=== PATIENT | male | born 1960 | race Hispanic/Latino ===

== ENCOUNTER 2019-06-02 11:00 | Inpatient (IN) | payer OTHER ==
[2019-06-04 13:13] VITALS: BMI 26.6
[2019-06-11] MEDS ORDERED: Sodium Chloride 0.9% 100 ML ONE (06:06)
[2019-06-11] MEDS ORDERED: Tranexamic Acid 1,000 MG/10 ML VIAL ONE (06:06)
[2019-06-11] MEDS ORDERED: Midazolam HCl 2 mg/2 ml Vial ONE (06:40)
[2019-06-11] MEDS ORDERED: Fentanyl 100 MCG/2 ML VIAL ONE ×4 (06:40→10:26)
[2019-06-11] MEDS ORDERED: HYDROcodone/Acetaminophen 10/325 mg Tablet PO PRN ×4 (07:05→07:43)
[2019-06-11] MEDS ORDERED: Acetaminophen 325 MG TAB PO PRN ×2 (07:05→07:46)
[2019-06-11] MEDS ORDERED: Fentanyl 100 MCG/2 ML VIAL SLOW IVP PRN ×3 (07:05→07:45)
[2019-06-11] MEDS ORDERED: Ondansetron PF 4 MG/2 ML Vial IVP PRN ×3 (07:05→12:35)
[2019-06-11] MEDS ORDERED: diphenhydrAMINE 25 MG CAP PO PRN ×2 (07:05→12:35)
[2019-06-11] MEDS ORDERED: Promethazine HCl 25 MG/ML VIAL IM PRN ×4 (07:05→12:35)
[2019-06-11] MEDS ORDERED: Zolpidem Tartrate 5 MG TAB PO PRN ×3 (07:05→12:35)
[2019-06-11] MEDS ORDERED: traMADol HCl 50 MG TAB PO PRN ×2 (07:43)
[2019-06-11] MEDS ORDERED: Ropivacaine HCl/PF 250 ML in Premix Bag 1 BAG NERVE BLCK SCH (07:43)
[2019-06-11] MEDS ORDERED: Ondansetron HCl/PF 4 MG/2 ML Vial IVP PRN (10:07)
[2019-06-11] MEDS ORDERED: Promethazine HCl 25 MG/ML VIAL SLOW IVP PRN (10:07)
[2019-06-11] MEDS ORDERED: Lidocaine 1% (PF) 30 ML VIAL ONE (10:12)
[2019-06-11] MEDS ORDERED: Meperidine HCl/PF 25 MG/ML VIAL ONE ×3 (10:13→11:00)
--- NOTE | 2019-06-11 10:43 | RAD ---
XR Knee Lt 2 View HISTORY: Total knee Arthroplasty, postop FINDINGS: No fracture or dislocation is identified. There are recent postoperative changes of total knee arthro plasty in good position and alignment. Soft tissue air is present.
[2019-06-11] MEDS ORDERED: Ketorolac Tromethamine 30 MG/ML VIAL IVP SCH (12:00)
[2019-06-11] MEDS: Losartan 25 MG TAB PO SCH (12:03)
[2019-06-11] MEDS: Aspirin 81 mg Enteric Coated Tablet PO SCH ×2 (12:03→20:08)
[2019-06-11] MEDS ORDERED: Naloxone HCl 0.4 mg/ml Vial IV PRN ×2 (12:35→19:24)
[2019-06-11] MEDS ORDERED: diphenhydrAMINE 50 MG/ML VIAL IVP PRN (12:35)
[2019-06-11] MEDS ORDERED: diphenhydrAMINE 50 MG/ML VIAL IM PRN (12:35)
[2019-06-11] MEDS ORDERED: fentaNYL Citrate/PF 2,000 MCG in Sodium Chloride 0.9% 60 ML IV PRN (12:35)
[2019-06-11] MEDS: Sodium Chloride 0.9% 1,000 ML IV SCH ×2 (12:43→15:48)
[2019-06-11] MEDS ORDERED: Communication Order-Pharmacy FS SCH (12:45)
[2019-06-11] MEDS ORDERED: hydrALAZINE 20 MG/ML VIAL SLOW IVP PRN (12:52)
--- NOTE | 2019-06-11 13:24 | CON ---
DATE OF CONSULTATION: 06/11/2019 PRIMARY CARE PROVIDER: Sergio Jonas MD CHIEF COMPLAINT: Management of medical comorbidities. HISTORY OF PRESENT ILLNESS: Mr. Dail is a pleasant 58-year-old gentleman, who was seen at [facility] on 06/11/2019. He had revision surgery of his left knee earlier today. Hospitalist Service has been consulted for management of medical comorbidities. He reports pain at the left knee. He denies any chest pain, shortness of breath, fevers, or chills. He denies any nausea or vomiting. He denies any abdominal pain. REVIEW OF SYSTEMS: All systems were reviewed and found to be negative except for the pertinent positives mentioned above. PAST MEDICAL HISTORY: 1. Hypertension. 2. Dyslipidemia. SURGICAL HISTORY: 1. Left knee repair x2. 2. Intracranial aneurysm repair. FAMILY HISTORY: No family history of coronary artery disease. SOCIAL HISTORY: The patient smokes 4-5 cigarettes a day. He reports alcohol use over the weekends. ALLERGIES: ASPIRIN AND CODEINE. CURRENT MEDICATIONS: 1. Ibuprofen p.r.n. 2. Atorvastatin 10 mg at bedtime. 3. Gabapentin 300 mg at bedtime. 4. Hiram p.r.n. 5. Losartan 50 mg daily. 6. Protonix 40 mg as needed. PHYSICAL EXAMINATION: GENERAL: On examination, Mr. Dial is awake and alert, not in acute distress. VITAL SIGNS: Blood pressure is 139/82, pulse 88, respiratory rate 18, and oxygen saturation 99% on room air. He is afebrile. EYES: No scleral icterus, no conjunctival pallor. ENT: Moist mucosal membranes. No oropharyngeal erythema or exudates. NECK: Supple, nontender, trachea is midline. RESPIRATORY: Accessory muscles of breathing are not active. Chest wall movements are symmetric bilaterally. Lungs are clear to auscultation without wheeze, rhonchi, or crepitations. CARDIOVASCULAR: S1 and S2 are heard, regular. Peripheral pulses palpable. ABDOMEN: Soft, nontender, bowel sounds heard. NEUROLOGIC: Cranial nerves 2 through 12 are intact. MUSCULOSKELETAL: Status post left knee surgery. SKIN: No rashes. LYMPHATIC: No cervical lymphadenopathy. PSYCHIATRIC: Normal mood, normal affect, the patient is oriented to person, place, and time. LABORATORY DATA: Mr. Dial's labs and investigations were reviewed. On 06/04, he had normal white count, normal hemoglobin, normal platelet count, INR 1.0, elevated creatinine of 1.53, otherwise unremarkable comprehensive metabolic profile. His creatinine was 0.86 on 10/30/2017. Urinalysis was negative for nitrite and leukocyte esterase. ASSESSMENT AND PLAN: Mr. Dial is a pleasant 58-year-old gentleman, who was seen at [facility] on 06/11/2019. His problem list includes: 1. Acute kidney injury: Mr. Dial had elevated creatinine of 1.53 on 06/04/2019. This is above his baseline. He is currently receiving intravenous hydration. I will recheck his creatinine in the morning. 2. Hypertension: Resume home medications, monitor vital signs and titrate antihypertensives as needed. The patient was not on a beta-usha prior to surgery, we will not start him on one. The patient will also be started on p.r.n. IV hydralazine for blood pressure spikes. 3. Dyslipidemia: Continue Lipitor. 4. Tobacco abuse: The patient was counseled regarding tobacco cessation. He does not want to start nicotine replacement therapy. Many thanks for allowing me to participate in your patient's care. Please feel free to contact me with any questions or concerns. LEVEL OF RISK: Low. LEVEL OF COMPLEXITY: Low. Job ID: [id number]
[2019-06-11] MEDS: CEFAZOLIN 2 GM in Premix Bag 1 BAG IVPB SCH ×2 (13:32→21:36)
[2019-06-11] MEDS ORDERED: FLU VACC QS2019-20(6MOS UP)/PF 60 MCG/0.5 ML SYRINGE IM ONE (13:45)
[2019-06-11] MEDS ORDERED: Ropivacaine 0.5% HCl/PF (150 MG/30 ML VIAL) ONE (14:06)
[2019-06-11] MEDS ORDERED: PROPOFOL 200 MG/20 ML VIAL ONE (14:06)
[2019-06-11] MEDS ORDERED: Ropivacaine 0.2% HCl/PF (40 MG/20 ML VIAL) ONE (14:06)
[2019-06-11] MEDS ORDERED: Lidocaine 1% PF 5 ML VIAL ONE (14:06)
[2019-06-11] MEDS ORDERED: Ondansetron PF 4 MG/2 ML Vial ONE (14:06)
--- NOTE | 2019-06-11 15:12 | OP ---
DATE OF PROCEDURE: 06/11/2019 PREOPERATIVE DIAGNOSIS: Failed left total knee arthroplasty. POSTOPERATIVE DIAGNOSIS: Failed left total knee arthroplasty. PROCEDURE PERFORMED: Revision of left total knee arthroplasty. MODEL ARTISTS': Ricky Thorpe PA-C ANESTHESIA: General via LMA augmented with indwelling adductor canal block and a single-shot sciatic block. COMPONENTS USED: [employer] Triathlon size 5 total stabilized cemented femoral component with two distal 10-mm augmentations and a 17 mm x 100 mm fluted stem, 19 mm polyethylene fixed bearing total stabilized insert and a Triathlon size 4 cemented total stabilized universal baseplate with a 15 x 50 mm stem. TOURNIQUET TIME: 106 minutes. INPUT: 1 L of crystalloid. OUTPUT: Not measured. No Millard placed. ESTIMATED BLOOD LOSS: Less than 100. FINDINGS: Normal serous synovial fluid, good cement mantle, but with mid flexion instability noted on clinical examination. No aseptic loosening was identified and patella was well fixed as well. The patient's primary problem was mid-flexion instability. DRAINS: None. SPECIMENS: None. COMPLICATIONS: None. COUNTS: Correct. INDICATIONS FOR SURGERY: Rolan is a 58-year-old male, who has had his primary knee replacement done approximately 5 years ago. He has always had discomfort and pain in the knee with stepping and walking. Radiographs have been serially obtained, which demonstrated no changes and he has never had evidence of any infection. Clinical complaints still centered around discomfort with standing and walking. Clinical examination was consistent with mid-flexion instability and therefore, the patient elected to proceed with revision arthroplasty for definitive treatment of this problem. PROCEDURE IN DETAIL: After informed consent was obtained in the preoperative holding area, the patient was taken to the operative suite. General anesthesia was induced and he received preoperative antibiotics. The patient was then positioned appropriately on the operating table. Well-padded tourniquet was placed over the left proximal thigh. Prior to inflation, a time-out was called. All members of surgical team agreed upon site, surgeon, and patient. The tourniquet was then raised where it stayed at 300 mmHg for the remainder of the case. Once this was accomplished, an incision was made directly over the patient's old incision. Subcutaneous layer was sharply dissected. Bleeding was controlled with electrocautery. A median parapatellar arthrotomy was then performed sharply. Medial sleeve was developed and a full subtotal synovectomy was performed and then medial and lateral gutters were reestablished with rongeur and Bovie electrocautery. The knee was placed in the high flexion and the reciprocating saw was then used to recreate the anterior flange and remove the cement mantle. This was accomplished on the anterior flange, anterior chamfer, and around the lugs. Series of osteotomes were then used to loosen the mantle and the femoral component was then loosened. Osteotomes were then used to remove the polyethylene fixed bearing insert and the femoral component then was fully removed. We had enough bone stalk for revision. Attention was then turned to tibial explantation, which was accomplished with a series of the reciprocating saw and osteotomes. The knee was placed in the high flexion and the tibial implant was then removed. Patella was identified. Synovectomy was carried out. It was found to be stable, therefore we did not revise it. Tibial preparation was then carried out. We established a new baseplate. The trial was malleted into place and pinned. We then chose a 16-mm trial, placed the femoral cutting block, established varus and valgus in rotation. This was pinned into place into full extension with no play in the collaterals. We then used oscillating saw to make distal resection. Happy with our flexion and extension gap, the cutting block was then removed. The intercondylar notch was cut and we placed the trial implants into place with appropriate 10 mm augments, both medial and lateral. Flexion and extension were good. Stable varus and valgus. We chose a 19-mm trial and we were happy with extension and flexion. No spit on flexion and good stable varus and valgus stressing. The trials were removed. Copious irrigation was carried out. All excess old cement was removed with curettage and the entire joint capsule, both internally and externally was cleaned out. We used 2 L of saline lavage. The implants were then prepared on the back table and cemented into place and the polyethylene fixed bearing insert was then malleted squarely into place and the retaining pin was also placed. Again, the knee was taken through full range of motion examination. Happy with the cement placement, the joint was copiously irrigated with normal saline pulsatile lavage. Primary closure was accomplished with interrupted #2 Vicryl. This was oversewn with a running #2 Quill stitch for the capsule. The subcutaneous layer was closed with a running Quill 0 PDS stitch and the subcuticular layer was closed with Monocryl running Quill stitch and skin was reapproximated with cement . Sterile dressing was applied. The tourniquet was dropped. The procedure was terminated without any complication and the LMA was removed. The patient was taken to recovery room in stable condition. Job ID: [id number]
[2019-06-11] MEDS: Acetaminophen 500 MG TAB PO SCH ×2 (16:50→21:35)
[2019-06-11] MEDS: HYDROmorphone 10 mg/100 ml CADD IV PRN (19:58)
[2019-06-11] MEDS: Atorvastatin Calcium 10 MG TAB PO SCH (20:08)
[2019-06-11] MEDS: Gabapentin 300 MG CAP PO SCH (20:08)
[2019-06-12] MEDS: Acetaminophen 500 MG TAB PO SCH ×4 (04:05→20:59)
[2019-06-12] MEDS: Sodium Chloride 0.9% 1,000 ML IV SCH ×2 (04:06→14:07)
[2019-06-12 05:22] LABS: Hemoglobin 12.4 g/dL (14.0-18.0); Mean Corpuscular Volume 88.5 fL (78.0-98.0); Mean Platelet Volume 7.5 fL (7.4-10.4); Platelet Count 215 thou/uL (130-400); RBC Distribution Width 11.2 % (11.5-14.5); Red Blood Cell (RBC) Count 4.01 mill/uL (4.70-6.10); White Blood Cell (WBC) Count 11.6 thou/uL (4.8-10.8)
[2019-06-12 05:43] LABS: Anion Gap 10 mmol/L (10-20); BUN (Urea Nitrogen) 9 mg/dL (8.4-25.7); Calc. Creatinine Clearance 102 mL/min (70-130); Calcium 8.5 mg/dL (7.8-10.44); Carbon Dioxide 25 mmol/L (22-29); Chloride 102 mmol/L (98-107); Estimated GFR-MDRD Greater than 90; Glucose 118 mg/dL (70-105); Potassium 4.2 mmol/L (3.5-5.1); Sodium 133 mmol/L (136-145)
[2019-06-12] MEDS: Losartan 25 MG TAB PO SCH (07:55)
[2019-06-12] MEDS: Senokot S 8.6-50 MG TAB PO SCH ×2 (07:55→20:59)
[2019-06-12] MEDS: Ferrous Gluconate 324 MG TAB PO SCH ×2 (07:55→17:13)
[2019-06-12] MEDS: Multivitamin W/ Minerals 1 TAB PO SCH (07:55)
[2019-06-12] MEDS: Aspirin 81 mg Enteric Coated Tablet PO SCH (07:56)
--- NOTE | 2019-06-12 08:46 | PRG ---
DATE OF SERVICE: 06/12/2019 SUBJECTIVE: Rolan is a 58-year-old male, who is postoperative day 1 from a left total knee arthroplasty revision. He complains of pain, but he did stand yesterday evening after surgery and walked to the door. He is currently using a CPO. OBJECTIVE: VITAL SIGNS: Temperature 98, pulse 85, respiratory rate 16 and unlabored, O2 saturation 92% on room air, and blood pressure 137/82. GENERAL: He is alert and oriented to person, place, time, and situation. Responsive, appropriate with examiner, grossly nonfocal. EXTREMITIES: His knee has no strike through. Dressing is intact. He is neurovascularly intact in the left lower extremity. LABORATORY DATA: Hemoglobin and hematocrit 12.4 and 35.5. IMPRESSION: A 58-year-old male, postoperative day 1 of revision left total knee arthroplasty. PLAN: Continue current care. Continue physical therapy. Probable discharge Saturday. Otherwise, he may go home over the weekend. Job ID: [id number]
[2019-06-12] MEDS: Enoxaparin Sodium 40 MG/0.4 ML SYRINGE SC SCH (09:09)
[2019-06-12] MEDS ORDERED: Fentanyl 100 MCG/2 ML VIAL SLOW IVP SCH (10:30)
[2019-06-12] MEDS: Ketorolac Tromethamine 30 MG/ML VIAL IVP SCH ×3 (10:48→20:59)
[2019-06-12] MEDS: HYDROmorphone 10 mg/100 ml CADD IV PRN (10:57)
[2019-06-12] MEDS: Gabapentin 300 MG CAP PO SCH (20:59)
[2019-06-12] MEDS: Atorvastatin Calcium 10 MG TAB PO SCH (20:59)
[2019-06-13 03:52] VITALS: BP 125/79; TEMP 98.3
[2019-06-13] MEDS: Ketorolac Tromethamine 30 MG/ML VIAL IVP SCH (04:02)
[2019-06-13] MEDS: Acetaminophen 500 MG TAB PO SCH (04:02)
[2019-06-13] MEDS: Sodium Chloride 0.9% 1,000 ML IV SCH (04:18)
[2019-06-13 05:37] LABS: Hemoglobin 11.1 g/dL (14.0-18.0); Mean Corpuscular HGB CONC 35.3 g/dL (32.0-36.0); Mean Corpuscular Hemoglobin 31.3 pg (27.0-31.0); Mean Corpuscular Volume 88.8 fL (78.0-98.0); Mean Platelet Volume 7.7 fL (7.4-10.4); Platelet Count 188 thou/uL (130-400); RBC Distribution Width 11.1 % (11.5-14.5); Red Blood Cell (RBC) Count 3.55 mill/uL (4.70-6.10); White Blood Cell (WBC) Count 11.5 thou/uL (4.8-10.8)
[2019-06-13] MEDS: Losartan 25 MG TAB PO SCH (08:17)
[2019-06-13] MEDS: Ferrous Gluconate 324 MG TAB PO SCH (08:17)
[2019-06-13] MEDS: Multivitamin W/ Minerals 1 TAB PO SCH (08:17)
[2019-06-13] MEDS: Senokot S 8.6-50 MG TAB PO SCH (08:17)
[2019-06-13] MEDS: Enoxaparin Sodium 40 MG/0.4 ML SYRINGE SC SCH (08:18)
== END 2019-06-13 10:04 | disposition home or self-care (01) | DRG 467 ==
LOC: SURG A 06-11 05:56 → SURG B 06-11 12:05
PROVIDERS: ADMIT Orthopaedic Surgery; ATTEND Orthopaedic Surgery
PROC: 0SPD0JZ Removal of Synthetic Substitute from Left Knee Joint, Open Approach (ICD-10-PCS; principal; 2019-06-11)
PROC: 0SRD0J9 Replacement of Left Knee Joint with Synthetic Substitute, Cemented, Open Approach (ICD-10-PCS; 2019-06-11)
DX: T84.013A Broken internal left knee prosthesis, initial encounter (principal); N17.9 Acute kidney failure, unspecified; I10 Essential (primary) hypertension; E78.5 Hyperlipidemia, unspecified; K21.9 Gastro-esophageal reflux disease without esophagitis; F41.9 Anxiety disorder, unspecified; F17.210 Nicotine dependence, cigarettes, uncomplicated; Y83.8 Other surgical procedures as the cause of abnormal reaction of the patient, or of later complication, without mention of misadventure at the time of the procedure
CPT/HCPCS: 36415; 80048; 85027; 88305; 88331; C1713; C1776; C1781; J0690; J1650; J1885; J2001; J2175; J2250; J2405; J2704; J2795; J3010; J3370; J3490

== ENCOUNTER 2019-06-04 07:21 | Outpatient (CLI) | payer OTHER ==
[2019-06-04 14:25] LABS: #Eosinphils 0.1 thou/uL (0.0-0.7); #Lymphocytes 1.9 thou/uL (1.20-3.40); #Monocytes 0.6 thou/uL (0.11-0.59); #Neutrophils 6.8 thou/uL (1.40-6.50); %Basophils 0.5 % (0.0-1.0); %Eosinophils 0.9 % (0.0-10.0); %Monocytes 6.4 % (0.0-10.0); %Neutrophils 72.2 % (42.0-75.0); Hemoglobin 15.6 g/dL (14.0-18.0); Mean Corpuscular HGB CONC 34.1 g/dL (32.0-36.0); Mean Corpuscular Hemoglobin 30.1 pg (27.0-31.0); Mean Corpuscular Volume 88.1 fL (78.0-98.0); Mean Platelet Volume 7.6 fL (7.4-10.4); Platelet Count 319 thou/uL (130-400); RBC Distribution Width 11.3 % (11.5-14.5); Red Blood Cell (RBC) Count 5.18 mill/uL (4.70-6.10); White Blood Cell (WBC) Count 9.4 thou/uL (4.8-10.8)
[2019-06-04 14:32] LABS: Prothrombin Time 12.7 SEC (12.0-14.7)
[2019-06-04 14:34] LABS: Bacteria/HPF None Seen HPF (None Seen); Bilirubin Negative (Negative); Blood, Urine Negative (Negative); Clarity Clear (Clear); Glucose, Urine (Dipstick) Normal (Negative); Leukocyte Negative Leu/uL (Negative); Nitrite Negative (Negative); Protein, Urine (Dipstick) Negative (Neg-Trace); RBC/HPF 0-3 HPF (0-3); Squamous Epithelial None Seen HPF (0-3); Urobilinogen Normal mg/dL (Less than 2); WBC/HPF 0-3 HPF (0-3)
[2019-06-04 14:46] LABS: Anion Gap 14 mmol/L (10-20); BUN (Urea Nitrogen) 15 mg/dL (8.4-25.7); Calc. Creatinine Clearance 0 mL/min (70-130); Calcium 9.7 mg/dL (7.8-10.44); Carbon Dioxide 27 mmol/L (22-29); Chloride 104 mmol/L (98-107); Estimated GFR-MDRD 47; Glucose 93 mg/dL (70-105); Potassium 4.7 mmol/L (3.5-5.1); Sodium 140 mmol/L (136-145)
--- NOTE | 2019-06-04 17:37 | EKG ---
Test Reason : Blood Pressure : / mmHG Vent. Rate : 075 BPM Atrial Rate : 075 BPM P-R Int : 130 ms QRS Dur : 072 ms QT Int : 364 ms P-R-T Axes : 039 058 057 degrees QTc Int : 406 ms Normal sinus rhythm Normal ECG When compared with ECG of 03-JUL-2016 09:55, No significant change was found Confirmed by DR. Marsha ARAMBULA ([id number]) on 06/04/2019 5:36:45 PM Referred By: ANNA Confirmed By:DR. Marsha ARAMBULA
== END 2019-06-04 07:22 | disposition home or self-care (01) ==
LOC: LABBT 07:21
PROVIDERS: ATTEND Orthopaedic Surgery
DX: Z01.818 Encounter for other preprocedural examination (principal); T84.9XXA Unspecified complication of internal orthopedic prosthetic device, implant and graft, initial encounter
CPT/HCPCS: 80048; 81001; 85025; 85610; 87081; 93005; 93010

== ENCOUNTER 2020-07-11 06:53 | Outpatient (CLI) | payer OTHER ==
[2020-07-11 14:24] LABS: Bilirubin Neg (Negative); Blood, Urine Negative (Negative); Clarity Clear (Clear); Glucose, Urine (Dipstick) Normal (Negative); Ketone, Urine Negative (Negative); Leukocyte Negative (Negative); Nitrite Negative (Negative); Protein, Urine (Dipstick) Negative (Neg-Trace); Urobilinogen Normal mg/dL (Less than 2)
[2020-07-11 14:41] LABS: Anion Gap 14 mmol/L (10-20); BUN (Urea Nitrogen) 11 mg/dL (8.4-25.7); Calc. Creatinine Clearance 0 mL/min (70-130); Calcium 9.4 mg/dL (7.8-10.44); Carbon Dioxide 21 mmol/L (22-29); Chloride 105 mmol/L (98-107); Glucose 87 mg/dL (70-105); Potassium 4.1 mmol/L (3.5-5.1); Sodium 136 mmol/L (136-145)
[2020-07-11 15:07] LABS: Hemoglobin 14.7 g/dL (14.0-18.0); Mean Corpuscular HGB CONC 34.7 G/DL (32.0-36.0); Mean Corpuscular Volume 86.5 fl (80.0-100.0); Mean Platelet Volume 10.1 fl (7.4-10.4); Platelet Count 335 10x3/uL (130-400); RBC Distribution Width 12.1 % (11.5-14.5); White Blood Cell (WBC) Count 9.9 10x3/uL (4.5-11.0)
[2020-07-11 15:29] LABS: PTT 26.3 sec (22.0-33.0); Prothrombin Time 10.7 sec (9.5-12.1)
[2020-07-11 16:54] LABS: RBC/HPF 0-3 HPF (0-3); WBC/HPF None Seen HPF (0-3)
[2020-07-11 16:55] LABS: Bacteria/HPF None Seen HPF (None Seen); Squamous Epithelial 0-3 HPF (0-3)
[2020-07-12 06:31] LABS: SARS-CoV-2 MS2 Positive; SARS-CoV-2 N Gene Negative; SARS-CoV-2 S Gene Negative; SARS-CoV-2 by NAA Not Detected (NotDetected); SARS-CoV-2 orf1ab Negative
== END 2020-07-11 06:54 | disposition home or self-care (01) ==
LOC: LABBT 06:53
PROVIDERS: ATTEND Urology
DX: Z01.818 Encounter for other preprocedural examination (principal); Z20.828 Contact with and (suspected) exposure to other viral communicable diseases; N32.81 Overactive bladder; N48.6 Induration penis plastica; N40.1 Benign prostatic hyperplasia with lower urinary tract symptoms
CPT/HCPCS: 80048; 81001; 85027; 85610; 85730; 87086; 87635; 93005; 93010; U0003

== ENCOUNTER 2020-07-14 09:41 | Observation (INO) | payer OTHER ==
[2020-07-14] MEDS ORDERED: Levofloxacin 500 mg/D5W 100 ml Premix Bag ONE (10:17)
[2020-07-14] MEDS ORDERED: Lidocaine 1% PF 5 ML VIAL ONE (11:22)
[2020-07-14] MEDS ORDERED: Glycopyrrolate 0.2 MG/ML 5 ML SYRINGE ONE (11:22)
[2020-07-14] MEDS ORDERED: Rocuronium Bromide 10 MG/ML (10ML VIAL) ONE (11:22)
[2020-07-14] MEDS ORDERED: PROPOFOL 200 MG/20 ML VIAL ONE (11:22)
[2020-07-14] MEDS ORDERED: Succinylcholine 200 MG/10 ml SYRINGE FS ONE (11:22)
[2020-07-14] MEDS ORDERED: Ondansetron PF 4 MG/2 ML Vial ONE (11:22)
[2020-07-14] MEDS ORDERED: Fentanyl 100 MCG/2 ML VIAL ONE ×3 (13:56→16:34)
[2020-07-14] MEDS ORDERED: B & O ONE (14:17)
[2020-07-14] MEDS ORDERED: diphenhydrAMINE 25 MG CAP PO PRN (14:35)
[2020-07-14] MEDS ORDERED: Ondansetron PF 4 MG/2 ML Vial IVP PRN (14:35)
[2020-07-14] MEDS ORDERED: Bisacodyl 10 MG SUPP PR PRN (14:35)
[2020-07-14] MEDS ORDERED: hydrALAZINE 20 MG/ML VIAL SLOW IVP PRN (14:35)
[2020-07-14] MEDS ORDERED: Mag-Al 1200 mg/1200 mg/30 ML UDCUP PO PRN (14:35)
[2020-07-14] MEDS ORDERED: Oxybutynin 5 MG TAB PO PRN (14:35)
[2020-07-14] MEDS ORDERED: Gabapentin 300 MG CAP PO PRN (14:37)
[2020-07-14] MEDS ORDERED: Phenazopyridine HCl 100 MG TAB PO PRN (14:50)
--- NOTE | 2020-07-14 16:14 | OP ---
DATE OF PROCEDURE: 07/14/2020 SERVICES: Urology. PREOPERATIVE DIAGNOSIS: Benign prostatic hyperplasia with obstruction. POSTOPERATIVE DIAGNOSIS: Benign prostatic hyperplasia with obstruction. PROCEDURE PERFORMED: Transurethral vaporization of the prostate. BRIEF HISTORY: Mr. Dial is a 60-year-old male, who initially presented to me with BPH and urinary symptoms. After workup, he was only marginally improved on Flomax. He did have improvement with oxybutynin, but was still not symptomatically urinating very well. Workup demonstrated BPH with narrow bladder neck. He was a good candidate for UroLift, however, his insurance would not cover this. Therefore, we elected to proceed with transurethral vaporization of the prostate. Risks and benefits of the surgery were discussed and he has agreed to proceed forward. DESCRIPTION OF PROCEDURE: After identification of armband and verification of consent, the patient was brought back to the operating room, where he went underwent general anesthesia with an endotracheal intubation. He was then placed in dorsal lithotomy position and prepped and draped in usual sterile fashion. After appropriate time-out, a 26-Ugandan resectoscope sheath with visual obturator was passed through the urethra and through the prostate into the bladder. The visual obturator was switched out for the bipolar vaporization button. Both ureters were identified in orthotopic location. Vaporization was initially started on the lateral lobes and carried back to the level of the verumontanum. The posterior and anterior aspect of the prostate were then vaporized. The bladder neck was extremely high and narrow. Therefore, 5 o'clock and 7 o'clock relaxing incisions were made to completely open up the bladder neck, which resulted in a wide-open prostatic fossa. All intervening tissue was then vaporized and then smoothed out. The bladder was decompressed and then under partial filling the remaining lumps from the prostate were smoothed out and vaporized. Upon completion, the prostate was extremely wide open. The prostate vaporization was carried out close to but not at the prostatic capsule and care was taken not to go past the verumontanum. Both ureters were in the orthotopic location, unharmed at the end of the procedure. Meticulous hemostasis had been performed along the prostatic fossa until no bleeding could be visualized with a mostly decompressed bladder. The bladder was then filled and the resectoscope removed. A 22-Ugandan three-way Millard catheter was placed with ease into the patient's bladder and 30 mL of sterile water placed into the balloon. CBI was initiated. A B and O suppository placed in the rectum. The patient was taken out of positioning, awakened, taken to PACU for recovery in stable condition. COMPLICATIONS: None. ESTIMATED BLOOD LOSS: Minimal. RETAINED TUBES AND DRAINS: 22-Ugandan three-way Millard catheter on CBI. SPECIMENS: None. DISPOSITION: The patient will be observed in the hospital overnight. We will plan a voiding trial in the morning and then discharge home subsequently. Job ID: [id number]
[2020-07-14] MEDS ORDERED: Hyoscyamine Sulfate SL 0.125 mg Tablet ONE ×2 (16:58→17:10)
[2020-07-14] MEDS ORDERED: Oxybutynin 5 MG TAB ONE (16:59)
[2020-07-14] MEDS ORDERED: Morphine 4 MG/ML VIAL ONE (17:06)
[2020-07-14] MEDS ORDERED: Morphine 2 MG/ML VIAL ONE ×4 (17:28→20:12)
[2020-07-14] MEDS ORDERED: Atorvastatin Calcium 10 MG TAB PO SCH (21:00)
[2020-07-14] MEDS: Acetaminophen 500 MG TAB PO PRN (21:30)
[2020-07-14] MEDS: Ibuprofen 200 MG TAB PO PRN (21:30)
[2020-07-14] MEDS: traMADol HCl 50 MG TAB PO PRN (21:30)
[2020-07-14] MEDS: Docusate 100 MG CAP PO SCH (21:30)
[2020-07-14 21:51] VITALS: BMI 23.6
[2020-07-14] MEDS: Morphine 2 MG/ML VIAL SLOW IVP PRN (22:38)
[2020-07-14] MEDS: Hyoscyamine Sulfate SL 0.125 mg Tablet SL PRN (23:58)
[2020-07-15] MEDS: Morphine 2 MG/ML VIAL SLOW IVP PRN ×5 (00:35→10:17)
[2020-07-15] MEDS: Hyoscyamine Sulfate SL 0.125 mg Tablet SL PRN ×2 (06:36→14:08)
[2020-07-15] MEDS ORDERED: Trospium 20 MG TAB PO SCH (09:00)
[2020-07-15] MEDS ORDERED: Losartan 25 MG TAB PO SCH (09:00)
[2020-07-15 09:07] VITALS: BP 112/73
[2020-07-15] MEDS: Docusate 100 MG CAP PO SCH (09:09)
[2020-07-15] MEDS: traMADol HCl 50 MG TAB PO PRN (09:09)
[2020-07-15] MEDS: Acetaminophen 500 MG TAB PO PRN (10:16)
[2020-07-15] MEDS: Ibuprofen 200 MG TAB PO PRN (10:16)
[2020-07-15 12:21] VITALS: TEMP 97.3
[2020-07-15] MEDS ORDERED: HYDROcodone/Acetaminophen 5/325 mg Tablet PO SCH (14:45)
--- NOTE | 2020-07-15 18:04 | PRG ---
DATE OF SERVICE: 07/15/2020 SUBJECTIVE: The patient states he is having a lot of pelvic pain and bladder spasms, but otherwise has had a night without any other issues. He denies any nausea, vomiting, or chest pain. His catheter CBI was stopped this morning and subsequently had his catheter removed. The patient then was able to void twice with clearing translucent light pink urine. OBJECTIVE: VITAL SIGNS: Temperature 97.3, pulse 66, respirations 18, blood pressure 112/73, and saturation 93% on room air. GENERAL: No apparent distress, communicative and alert. CARDIOVASCULAR: Regular rate and rhythm. ABDOMEN: Soft, nontender, and nondistended. Positive bowel sounds. : Nonfocal. After catheter out, no significant bleeding. EXTREMITIES: No edema. LABORATORY EVALUATION: There are no new labs to review. ASSESSMENT AND PLAN: A 60-year-old male with benign prostatic hypertrophy and urinary obstruction status post transurethral vaporization of prostate with successful voiding trial today, postoperative day 1. The patient can be discharged home. He is complaining of a lot of dysuria and pelvic pain. He states the tramadol is working well. I will switch him to hydrocodone with Tylenol for pain control and I will start him on a Medrol Dosepak to reduce inflammation to avoid possible risk for urethral stricture disease and bladder neck contracture. We will continue to monitor his progress as an outpatient. I have gone over his discharge instructions with him and we will see him on an outpatient basis. Job ID: [id number]
--- NOTE | 2020-07-16 02:53 | DIS ---
DATE OF ADMISSION: 07/14/2020 DATE OF DISCHARGE: 07/15/2020 ADMITTING DIAGNOSIS: BPH with obstruction. DISCHARGE DIAGNOSIS: BPH with obstruction. PROCEDURE PERFORMED: While inpatient is transurethral vaporization of prostate. BRIEF HISTORY: Mr. Dial is a 60-year-old male with BPH and urinary obstructive symptoms. His insurance would not cover the urolith procedure which he wanted. Therefore, he has elected to go for vaporization of the prostate instead. Risks and benefits have been discussed and he agreed to proceed forward. The full H and P can be found in the scanned portion of the [employer] system. HOSPITAL COURSE: After surgery (please see operative note for details), the patient was kept in the hospital overnight on CBI. The CBI was discontinue in the morning. The patient was able to successfully void twice after this with extremely clear urine with only a little bit of blood. He did complain of a lot of pain and stated that tramadol was not working. He was given Hope instead, which worked better. I told him we would also give him a Medrol Dosepak to reduce inflammation and help avoid strictures or bladder neck contractures within the prostate. He felt better after this and was able to be discharged home without further event. DISPOSITION: DC to home. DISCHARGE CONDITION: Good. DISCHARGE MEDICATIONS: The patient may resume all of his home medications. In addition, he will be given a prescription for Hope 5/325 mg one tab p.o. q.6 hours p.r.n. pain, Colace 100 mg p.o. daily., Pyridium 200 mg p.o. t.i.d. p.r.n. dysuria, and Medrol Dosepak. The patient already has oxybutynin extended release at home and will continue this for his overactive bladder. I will plan to see him back in approximately 1 to 2 weeks for a postop check. Job ID: [id number]
== END 2020-07-15 14:55 | disposition home or self-care (01) ==
LOC: SDC 09:41 → SURG A 14:35
PROVIDERS: ADMIT Urology; ATTEND Urology
PROC: 0V507ZZ Destruction of Prostate, Via Natural or Artificial Opening (ICD-10-PCS; principal; 2020-07-14)
DX: N40.1 Benign prostatic hyperplasia with lower urinary tract symptoms (principal); N13.8 Other obstructive and reflux uropathy; N32.89 Other specified disorders of bladder; M19.90 Unspecified osteoarthritis, unspecified site; K21.9 Gastro-esophageal reflux disease without esophagitis; E78.5 Hyperlipidemia, unspecified; I10 Essential (primary) hypertension; Z86.73 Personal history of transient ischemic attack (TIA), and cerebral infarction without residual deficits; Z79.899 Other long term (current) drug therapy; Z88.5 Allergy status to narcotic agent; Z88.6 Allergy status to analgesic agent
CPT/HCPCS: 96365; 96375; 96376; G0378; J1956; J2270; J2405; J2704; J3010

== ENCOUNTER 2022-10-12 11:27 | Outpatient (CLI) | payer OTHER ==
[2022-10-12 12:29] LABS: Bilirubin Neg (Negative); Blood, Urine Negative (Negative); Clarity Clear (Clear); Glucose, Urine (Dipstick) Normal (Negative); Ketone, Urine Negative (Negative); Leukocyte Negative (Negative); Nitrite Negative (Negative); Protein, Urine (Dipstick) Negative (Neg-Trace); Urobilinogen Normal mg/dL (Less than 2); pH, Urine 6.5 (5.0-9.0)
[2022-10-12 12:46] LABS: Bacteria/HPF None Seen HPF (None Seen); RBC/HPF None Seen HPF (0-3); Squamous Epithelial None Seen HPF (0-3); WBC/HPF None Seen HPF (0-3)
[2022-10-12 13:00] LABS: Hemoglobin 14.7 g/dL (13.5-17.5); Mean Corpuscular HGB CONC 34.6 g/dL (32.0-36.0); Mean Corpuscular Hemoglobin 30.2 pg (27.0-33.0); Mean Corpuscular Volume 87.3 fl (81.2-95.1); Mean Platelet Volume 10.4 fl (7.4-10.4); Platelet Count 328 10x3/uL (150-450); RBC Distribution Width 12.9 % (11.5-14.5); Red Blood Cell (RBC) Count 4.87 10x6/uL (4.32-5.72); White Blood Cell (WBC) Count 10.2 10x3/uL (3.5-10.5)
[2022-10-12 13:09] LABS: Anion Gap 12 mmol/L (10-20); BUN (Urea Nitrogen) 15 mg/dL (8.4-25.7); Calc. Creatinine Clearance 0 mL/min (70-130); Calcium 9.2 mg/dL (7.8-10.44); Carbon Dioxide 24 mmol/L (23-31); Chloride 105 mmol/L (98-107); Estimated GFR 89; Glucose 84 mg/dL (80-115); Potassium 4.8 mmol/L (3.5-5.1); Sodium 136 mmol/L (136-145)
[2022-10-12 13:11] LABS: INR-International Normal Ratio 0.9; PTT 25.5 sec (22.0-33.0); Prothrombin Time 9.9 sec (9.5-12.1)
== END 2022-10-12 11:28 | disposition home or self-care (01) ==
LOC: LABBT 11:27
PROVIDERS: ATTEND Urology
DX: Z01.818 Encounter for other preprocedural examination (principal); N48.6 Induration penis plastica
CPT/HCPCS: 80048; 81001; 85027; 85610; 85730; 87086; 93005; 93010

== ENCOUNTER 2022-10-26 08:38 | Day surgery (SDC) | payer OTHER ==
[2022-10-24 13:09] VITALS: BMI 27.3
[2022-10-26] MEDS ORDERED: fentaNYL PF 100 MCG/2 ML SYRINGE ONE (13:00)
[2022-10-26] MEDS ORDERED: Bupivacaine 0.25% HCL 30 ML VIAL ONE (13:09)
[2022-10-26] MEDS ORDERED: Neomycin-Polymyxin 1 ML AMP ONE (13:09)
== END 2022-10-26 14:12 | disposition home or self-care (01) ==
LOC: SDC 08:38
PROVIDERS: ATTEND Urology
DX: N48.6 Induration penis plastica (principal); I10 Essential (primary) hypertension; E78.5 Hyperlipidemia, unspecified; K21.9 Gastro-esophageal reflux disease without esophagitis; Z53.29 Procedure and treatment not carried out because of patient's decision for other reasons; Z88.5 Allergy status to narcotic agent; Z88.6 Allergy status to analgesic agent; Z79.899 Other long term (current) drug therapy
CPT/HCPCS: S0020

== ENCOUNTER 2023-04-17 07:38 | Outpatient (CLI) | payer OTHER | END 2023-04-17 07:39 | disposition home or self-care (01) | LOC: SCSMRI 07:38 | PROVIDERS: ATTEND Family Medicine | DX: R55 Syncope and collapse (principal); R42 Dizziness and giddiness; V89.2XXA Person injured in unspecified motor-vehicle accident, traffic, initial encounter; M54.12 Radiculopathy, cervical region; M48.02 Spinal stenosis, cervical region; G93.89 Other specified disorders of brain; Z98.2 Presence of cerebrospinal fluid drainage device | CPT/HCPCS: 70553; 72141; 82565 ==

== ENCOUNTER 2023-06-18 09:40 | Outpatient (CLI) | payer OTHER | END 2023-06-18 09:41 | disposition home or self-care (01) | LOC: BICMRI 09:40 | PROVIDERS: ATTEND Orthopaedic Surgery | DX: S46.011A Strain of muscle(s) and tendon(s) of the rotator cuff of right shoulder, initial encounter (principal); M75.121 Complete rotator cuff tear or rupture of right shoulder, not specified as traumatic; M67.813 Other specified disorders of tendon, right shoulder; M19.011 Primary osteoarthritis, right shoulder; M25.411 Effusion, right shoulder ==

== ENCOUNTER 2023-07-25 07:06 | Day surgery (SDC) | payer OTHER ==
[2023-07-24 13:31] VITALS: BMI 25.0
[2023-07-25] MEDS ORDERED: fentaNYL 50 mcg/mL 1 mL Vial ONE (07:28)
[2023-07-25] MEDS ORDERED: Midazolam HCl 2 mg/2 ml Vial ONE (07:28)
[2023-07-25] MEDS ORDERED: Ropivacaine 0.5% HCl/PF (150 MG/30 ML VIAL) ONE (07:29)
[2023-07-25] MEDS ORDERED: Ropivacaine 0.2% HCl/PF 20 ML ONE (07:29)
[2023-07-25] MEDS ORDERED: Tranexamic Acid 1,000 MG/10 ML VIAL ONE (08:11)
[2023-07-25] MEDS ORDERED: Vancomycin 1 GM/200 ML (FROZEN) BAG ONE (08:12)
[2023-07-25] MEDS ORDERED: Sodium Chloride 0.9% 100 ML ONE ×2 (08:12→09:45)
[2023-07-25] MEDS ORDERED: Acetaminophen 500 MG TAB ONE (08:25)
[2023-07-25] MEDS ORDERED: Rocuronium Bromide 10 MG/ML (10ML VIAL) ONE (09:43)
[2023-07-25] MEDS ORDERED: fentaNYL PF 100 MCG/2 ML SYRINGE ONE (09:43)
[2023-07-25] MEDS ORDERED: Ondansetron PF 4 MG/2 ML Vial ONE (09:43)
[2023-07-25] MEDS ORDERED: PROPOFOL 20 ML ONE (09:43)
[2023-07-25] MEDS ORDERED: Dexamethasone 4 mg/ml Vial ONE (09:43)
[2023-07-25] MEDS ORDERED: Ketorolac Tromethamine 30 MG (1 mL) VIAL ONE (09:43)
[2023-07-25] MEDS ORDERED: CEFAZOLIN 2 GM VIAL ONE (09:44)
[2023-07-25] MEDS ORDERED: fentaNYL 50 mcg/mL 1 mL Vial SLOW IVP PRN (09:46)
[2023-07-25] MEDS ORDERED: Ondansetron PF 4 MG/2 ML Vial IVP PRN (10:00)
[2023-07-25] MEDS ORDERED: Promethazine HCl 25 MG/ML VIAL IM PRN (10:00)
[2023-07-25] MEDS ORDERED: traMADol HCl 50 MG TAB PO PRN ×2 (10:00)
[2023-07-25] MEDS ORDERED: Ropivacaine 0.2% 550 ML 550 ML NERVE BLCK SCH (10:00)
[2023-07-25] MEDS ORDERED: Zolpidem Tartrate 5 MG TAB PO PRN (10:00)
[2023-07-25] MEDS ORDERED: HYDROcodone/Acetaminophen 10/325 mg Tablet PO PRN ×2 (10:00)
[2023-07-25] MEDS ORDERED: Glycopyrrolate 0.2 MG/ML 5 ML SYRINGE ONE (11:32)
[2023-07-25] MEDS ORDERED: NEOSTIGMINE 3 MG/3 ML SYR 3 MG/3 ML SYRINGE ONE (11:32)
[2023-07-25] MEDS ORDERED: SUGAMMADEX SODIUM 200 MG/2 ML VIAL ONE (11:37)
[2023-07-25] MEDS ORDERED: Ketorolac Tromethamine 30 MG (1 mL) VIAL IVP SCH (12:00)
== END 2023-07-25 14:51 | disposition home or self-care (01) ==
LOC: SDC 07:06
PROVIDERS: ATTEND Orthopaedic Surgery
PROC: 0RRJ0JZ Replacement of Right Shoulder Joint with Synthetic Substitute, Open Approach (ICD-10-PCS; principal; 2023-07-25)
DX: S46.011A Strain of muscle(s) and tendon(s) of the rotator cuff of right shoulder, initial encounter (principal); M12.811 Other specific arthropathies, not elsewhere classified, right shoulder; F17.200 Nicotine dependence, unspecified, uncomplicated; H91.90 Unspecified hearing loss, unspecified ear; F41.9 Anxiety disorder, unspecified; N48.6 Induration penis plastica; K21.9 Gastro-esophageal reflux disease without esophagitis; I10 Essential (primary) hypertension; E78.5 Hyperlipidemia, unspecified; F10.90 Alcohol use, unspecified, uncomplicated; F15.90 Other stimulant use, unspecified, uncomplicated; Z88.5 Allergy status to narcotic agent; Z88.8 Allergy status to other drugs, medicaments and biological substances; Z96.652 Presence of left artificial knee joint; Z86.79 Personal history of other diseases of the circulatory system; Z79.899 Other long term (current) drug therapy; X58.XXXA Exposure to other specified factors, initial encounter
CPT/HCPCS: A4306; C1713; C1776; J1100; J1885; J2250; J2405; J2704; J2795; J3010; J3370-JW; J3490